=== PATIENT | female | born 1940 | race Caucasian/White ===

== ENCOUNTER → 2017-02-09 | Outpatient (CLI) | payer MEDICARE, OTHER ==
[2017-02-09 09:49] LABS: ABSOLUTE EOSINOPHILS # (AUTO) 0.1 10^3/uL (0.0-0.6); ABSOLUTE LYMPHOCYTES (AUTO) 2.1 10^3/uL (0.5-4.7); ABSOLUTE MONOCYTES (AUTO) 0.5 10^3/uL (0.1-1.4); ABSOLUTE NEUT (AUTO) 4.4 10^3/uL (1.7-8.2); BASOPHILS % (AUTO) 0.5 % (0-2); EOSINOPHILS % (AUTO) 1.2 % (0-6); HEMATOCRIT 33.4 % (36.0-47.0); HEMOGLOBIN 10.8 g/dL (12.0-15.5); LYMPHOCYTES % (AUTO) 29.3 % (13-45); MEAN CORPUSCULAR HEMOGLOBIN 28.4 pg (27.0-33.4); MEAN CORPUSCULAR HGB CONC 32.2 g/dL (32.0-36.0); MEAN CORPUSCULAR VOLUME 88 fl (80-97); MONOCYTES % (AUTO) 6.9 % (3-13); RED BLOOD COUNT 3.79 10^6/uL (3.72-5.28); RED CELL DISTRIBUTION WIDTH 13.5 % (11.5-14.0); SEGMENTED NEUTROPHILS % (AUTO) 62.1 % (42-78)
[2017-02-09 10:27] LABS: ALANINE AMINOTRANSFERASE 26 U/L (9-52); ALBUMIN 4.2 g/dL (3.5-5.0); ALKALINE PHOSPHATASE 62 U/L (38-126); ANION GAP 11 (5-19); ASPARTATE AMINO TRANSFERASE 18 U/L (14-36); BILIRUBIN,DIRECT 0.3 mg/dL (0.0-0.4); BILIRUBIN,TOTAL 0.4 mg/dL (0.2-1.3); BLOOD UREA NITROGEN 26 mg/dL (7-20); CALCIUM 9.8 mg/dL (8.4-10.2); CARBON DIOXIDE 28 mmol/L (22-30); CHLORIDE 102 mmol/L (98-107); CHOLESTEROL 192.07 mg/dL (0-200); CREATININE RESULT 0.82 mg/dL (0.52-1.25); Direct HDL 81 mg/dL (>40); GLUCOSE 122 mg/dL (75-110); POTASSIUM 4.7 mmol/L (3.6-5.0); SODIUM 140.9 mmol/L (137-145); TOTAL PROTEIN 6.7 g/dL (6.3-8.2); TRIGLYCERIDES 159 mg/dL (<150)
[2017-02-09 10:39] LABS: DIRECT LDL 73 mg/dL (<100)
[2017-02-09 10:43] LABS: VLDL CHOLESTEROL 31.8 mg/dL (10-31)
== END ==
LOC: OD 08:52
PROVIDERS: ATTEND Internal Medicine
DX: E11.9 Type 2 diabetes mellitus without complications (principal); I10 Essential (primary) hypertension; E78.5 Hyperlipidemia, unspecified; R53.82 Chronic fatigue, unspecified
CPT/HCPCS: 36415; 80053; 80061; 82043; 83036; 84443; 85025

== ENCOUNTER → 2018-04-17 | Outpatient (CLI) | payer MEDICARE ==
[2018-04-17 11:52] LABS: ABSOLUTE EOSINOPHILS # (AUTO) 0.2 10^3/uL (0.0-0.6); ABSOLUTE MONOCYTES (AUTO) 0.4 10^3/uL (0.1-1.4); ABSOLUTE NEUT (AUTO) 4.6 10^3/uL (1.7-8.2); BASOPHILS % (AUTO) 0.7 % (0-2); EOSINOPHILS % (AUTO) 2.3 % (0-6); HEMATOCRIT 33.9 % (36.0-47.0); HEMOGLOBIN 11.4 g/dL (12.0-15.5); LYMPHOCYTES % (AUTO) 27.9 % (13-45); MEAN CORPUSCULAR HEMOGLOBIN 29.1 pg (27.0-33.4); MEAN CORPUSCULAR HGB CONC 33.6 g/dL (32.0-36.0); MEAN CORPUSCULAR VOLUME 87 fl (80-97); MONOCYTES % (AUTO) 6.1 % (3-13); PLATELET COUNT 283 10^3/uL (150-450); RED BLOOD COUNT 3.92 10^6/uL (3.72-5.28); RED CELL DISTRIBUTION WIDTH 14.1 % (11.5-14.0); TOTAL CELLS COUNTED % (AUTO) 100 %; WHITE BLOOD COUNT 7.3 10^3/uL (4.0-10.5)
[2018-04-17 12:12] LABS: ALANINE AMINOTRANSFERASE 21 U/L (9-52); ALKALINE PHOSPHATASE 75 U/L (38-126); ANION GAP 13 (5-19); ASPARTATE AMINO TRANSFERASE 22 U/L (14-36); BILIRUBIN,DIRECT 0.2 mg/dL (0.0-0.4); BILIRUBIN,TOTAL 0.5 mg/dL (0.2-1.3); BLOOD UREA NITROGEN 21 mg/dL (7-20); CALCIUM 9.7 mg/dL (8.4-10.2); CARBON DIOXIDE 27 mmol/L (22-30); CHLORIDE 101 mmol/L (98-107); GLUCOSE 174 mg/dL (75-110); POTASSIUM 4.5 mmol/L (3.6-5.0); SODIUM 140.5 mmol/L (137-145); TOTAL PROTEIN 6.8 g/dL (6.3-8.2)
[2018-04-18 12:38] LABS: CREATININE URINE 169.9 mg/dL (Not Estab.); MICROALBUMIN URINE 75.2 ug/mL (Not Estab.)
[2018-04-19 11:07] LABS: CHOLESTEROL 188.93 mg/dL (0-200); TRIGLYCERIDES 187 mg/dL (<150)
[2018-04-19 11:17] LABS: DIRECT LDL 114 mg/dL (<100)
[2018-04-19 11:19] LABS: VLDL CHOLESTEROL 37.4 mg/dL (10-31)
== END ==
LOC: OD 10:26
PROVIDERS: ATTEND Internal Medicine
DX: E11.9 Type 2 diabetes mellitus without complications (principal); I10 Essential (primary) hypertension; E78.5 Hyperlipidemia, unspecified; E03.9 Hypothyroidism, unspecified; M06.9 Rheumatoid arthritis, unspecified
CPT/HCPCS: 36415; 80053; 80061; 82043; 82570; 83036; 84443; 85025

== ENCOUNTER 2018-11-02 13:42 | Emergency (ER) | payer MEDICARE ==
[2018-11-02 13:49] VITALS: BP 117/46
[2018-11-02] MEDS ORDERED: KETOROLAC TROMETHAMINE INJ/PF 30 MG/1 ML SDV IV ONE (14:54)
[2018-11-02] MEDS ORDERED: NORMAL SALINE 1000 ML 1,000 ML IV ONE ×2 (14:55→17:42)
--- NOTE | 2018-11-02 14:55 | ER Document Report ---
ED Medical Screen (RME) - General Mode of Arrival: Ambulatory Information source: Patient TRAVEL OUTSIDE OF THE [place] IN LAST 30 DAYS: No <MACARENA JO - Last Filed: 11/02/18 15:19> <MAGGIE COLES - Last Filed: 11/02/18 18:22> - General Chief Complaint: Urinary Problem Stated Complaint: DIZZINESS Time Seen by Provider: 11/02/18 14:18 Primary Care Provider: ALTHEA BRANDON MD [Primary Care Provider] - Follow up as needed Notes: Patient is a 78-year-old female presented to the emergency department chief complaint of bilateral low back pain, urinary frequency, urgency and dysuria. Patient reports she is already had a 7-day course of Cipro for urinary tract infection however her symptoms have worsened. She states she was seen at her physician's office today who directed her to come to the ED for possible pyelonephritis. Patient reports 2 episodes of vomiting in the last 24 hours, reports chills but has not taken her temperature. (MACARENA JO) - Related Data Allergies/Adverse Reactions: adhesive tape [Adhesive Tape] Allergy (Severe, Verified 11/02/18 13:45) Blisters morphine [Morphine] Allergy (Severe, Verified 11/02/18 13:45) "body on fire" Sulfa (Sulfonamide Antibiotics) Allergy (Severe, Verified 11/02/18 13:45) rash aspirin [Aspirin] Adverse Reaction (Severe, Verified 11/02/18 13:45) Vomiting lisinopril [Lisinopril] Adverse Reaction (Intermediate, Verified 11/02/18 13:45) COUGH Past Medical History - Past Medical History Cardiac Medical History: Reports: Hx Hypercholesterolemia, Hx Hypertension - medicated Denies: Hx Coronary Artery Disease, Hx Heart Attack Pulmonary Medical History: Reports: Hx Bronchitis Denies: Hx Asthma, Hx COPD, Hx Pneumonia Neurological Medical History: Denies: Hx Cerebrovascular Accident, Hx Seizures Endocrine Medical History: Reports: Hx Diabetes Mellitus Type 1, Hx Hypothyroidism Renal/ Medical History: Denies: Hx Peritoneal Dialysis GI Medical History: Reports: Hx Gastroesophageal Reflux Disease. Denies: Hx Hepatitis, Hx Hiatal Hernia, Hx Ulcer Musculoskeltal Medical History: Reports Hx Arthritis - shoulders,hands,rt ankle,back Infectious Medical History: Denies: Hx Hepatitis Past Surgical History: Reports: Hx Appendectomy, Hx Breast Surgery - reduction, Hx Cholecystectomy, Hx Hysterectomy, Hx Orthopedic Surgery - right ankle. Denies: Hx Mastectomy, Hx Open Heart Surgery, Hx Pacemaker - Immunizations Hx Diphtheria, Pertussis, Tetanus Vaccination: Yes - 2006 <MACARENA JO - Last Filed: 11/02/18 15:19> - Vital signs Vitals: Temp Pulse Resp BP Pulse Ox 98.4 F 85 16 117/46 L 94 11/02/18 13:47 11/02/18 13:47 11/02/18 13:47 11/02/18 13:47 11/02/18 13:47 Course - Laboratory Result Diagrams: 11/02/18 15:14 11/02/18 15:14 <MAGIGE COLES - Last Filed: 11/02/18 18:22> - Vital Signs Vital signs: Temp Pulse Resp BP Pulse Ox 98.4 F 85 16 117/46 L 94 11/02/18 13:47 11/02/18 13:47 11/02/18 13:47 11/02/18 13:47 11/02/18 13:47 - Laboratory Laboratory results interpreted by me: 11/02/18 11/02/18 11/02/18 15:14 15:14 15:14 WBC 15.1 H RBC 3.23 L Hgb 9.2 L Hct 28.0 L RDW 14.1 H Plt Count 692 H Seg Neutrophils % 82.2 H Lymphocytes % 9.8 L Absolute Neutrophils 12.4 H Sodium 134.5 L Chloride 97 L BUN 24 H Est GFR ( Amer) 54 L Est GFR (Non-Af Amer) 45 L Glucose 254 H Total Protein 6.2 L Urine Protein 30 H Urine Glucose (UA) >=500 H Urine Blood LARGE H Ur Leukocyte Esterase TRACE H Doctor's Discharge <MACARENA JO - Last Filed: 11/02/18 15:19> <MAGGEI COLES - Last Filed: 11/02/18 18:22> - Discharge Clinical Impression: Weakness, Nausea Low back pain Qualifiers: Chronicity: unspecified Back pain laterality: bilateral Sciatica presence: without sciatica Qualified Code(s): M54.5 - Low back pain Condition: Good Disposition: HOME, SELF-CARE Instructions: Weakness ([facility]), Hematuria ([facility]), Nausea or Vomiting, Nonspecific ([facility]) Additional Instructions: Your urinalysis shows blood but no evidence of an acute infection. A urine culture has been sent and this will result in 2 to 3 days. If you require furt her antibiotics she will be contacted. Recent infection can cause weakness, fatigue and nausea. He has been sent home with Zofran that you can use for your nausea. Please return if you experience persistent vomiting, fever greater than 101. Please be sure to drink plenty of fluids. Return to the emergency department with any concerning symptoms. Prescriptions: Ketorolac Tromethamine [Toradol 10 mg Tablet] 10 mg PO Q6HP PRN #10 tablet PRN Reason: Ondansetron [Zofran Odt 4 mg Tablet] 1 - 2 tab PO Q4H PRN #15 tab.rapdis PRN Reason: For Nausea/Vomiting Referrals: ALTHEA BRANDON MD [Primary Care Provider] - Follow up in 3-5 days
[2018-11-02 15:47] LABS: ABSOLUTE BASOPHILS # (AUTO) 0.1 10^3/uL (0.0-0.2); ABSOLUTE EOSINOPHILS # (AUTO) 0.1 10^3/uL (0.0-0.6); ABSOLUTE LYMPHOCYTES (AUTO) 1.5 10^3/uL (0.5-4.7); ABSOLUTE NEUT (AUTO) 12.4 10^3/uL (1.7-8.2); BASOPHILS % (AUTO) 0.4 % (0-2); EOSINOPHILS % (AUTO) 0.6 % (0-6); HEMOGLOBIN 9.2 g/dL (12.0-15.5); LYMPHOCYTES % (AUTO) 9.8 % (13-45); MEAN CORPUSCULAR HEMOGLOBIN 28.6 pg (27.0-33.4); MEAN CORPUSCULAR VOLUME 87 fl (80-97); PLATELET COUNT 692 10^3/uL (150-450); RED BLOOD COUNT 3.23 10^6/uL (3.72-5.28); RED CELL DISTRIBUTION WIDTH 14.1 % (11.5-14.0); SEGMENTED NEUTROPHILS % (AUTO) 82.2 % (42-78); TOTAL CELLS COUNTED % (AUTO) 100 %; WHITE BLOOD COUNT 15.1 10^3/uL (4.0-10.5)
[2018-11-02 16:03] LABS: APPEARANCE,URINE CLOUDY; BILIRUBIN,URINE NEGATIVE (NEGATIVE); COLOR,URINE YELLOW; GLUCOSE, URINE >=500 mg/dL (NEGATIVE); KETONES,URINE NEGATIVE (NEGATIVE); LEUKOCYTE ESTERASE,URINE TRACE (NEGATIVE); NITRITE,URINE NEGATIVE (NEGATIVE); PROTEIN,URINE 30 mg/dL (NEGATIVE); URINE SPECIFIC GRAVITY 1.018; UROBILINOGEN,URINE NEGATIVE mg/dL (<2.0)
[2018-11-02 16:07] LABS: ALANINE AMINOTRANSFERASE 26 U/L (9-52); ALBUMIN 3.5 g/dL (3.5-5.0); ANION GAP 15 (5-19); ASPARTATE AMINO TRANSFERASE 27 U/L (14-36); BILIRUBIN,DIRECT 0.3 mg/dL (0.0-0.4); BILIRUBIN,TOTAL 0.3 mg/dL (0.2-1.3); BLOOD UREA NITROGEN 24 mg/dL (7-20); CALCIUM 9.3 mg/dL (8.4-10.2); CARBON DIOXIDE 23 mmol/L (22-30); CHLORIDE 97 mmol/L (98-107); GLUCOSE 254 mg/dL (75-110); NEONATAL BILIRUBIN RESULT 0.1 mg/dL (0.1-1.1); POTASSIUM 4.4 mmol/L (3.6-5.0); SODIUM 134.5 mmol/L (137-145); TOTAL PROTEIN 6.2 g/dL (6.3-8.2)
[2018-11-02 16:09] LABS: ALKALINE PHOSPHATASE 93 U/L (38-126)
[2018-11-02] MEDS ORDERED: ONDANSETRON HCL INJ/PF 4 MG/2 ML SDV IV ONE (17:42)
[2018-11-02] MEDS ORDERED: FENTANYL CITRATE INJ/PF 100 MCG/2 ML AMPUL IV ONE (17:42)
--- NOTE | 2018-11-02 18:27 | ER Document Report ---
ED General - General Chief Complaint: Urinary Problem Stated Complaint: DIZZINESS Time Seen by Provider: 11/02/18 14:18 Primary Care Provider: ALTHEA BRANDON MD [Primary Care Provider] - Follow up in 3-5 days Mode of Arrival: Ambulatory Information source: Patient, Relative, DrCarlotta Franklin, [facility] Records Notes: 78-year-old female with hypertension, hyperlipidemia, type 1 diabetes, report of recent urinary tract infection treated with 1 week of Cipro Presents with complaint of nausea, low back pain, weakness, abdominal pain that have been present for 1 week. Patient reports that her primary care physician tract infection 1 week ago. She denies any dysuria, hematuria, urinary frequency. Patient states that after her antibiotic course she was evaluated by Dr. Brandon who advised that the patient be seen in the emergency department because of her weakness. Patient has not had any fever, chest pain,, vomiting shortness of breath, diarrhea. Patient's lower abdominal pain is located in the right and left lower quadrant and described as a cramping pain. Patient does report some improvement of her pain after receiving IV Toradol. TRAVEL OUTSIDE OF THE [place] IN LAST 30 DAYS: No - HPI Onset: Last week Onset/Duration: Gradual, Persistent Quality of pain: Achy Severity: Mild Pain Level: 1 Associated symptoms: Body/muscle aches, Nausea, Weakness. denies: Chest pain, Nonproductive cough, Diarrhea, Fever, Leg swelling, Vomiting, Shortness of breath Exacerbated by: Denies Relieved by: Denies Similar symptoms previously: Yes Recently seen / treated by doctor: Yes - Related Data Allergies/Adverse Reactions: adhesive tape [Adhesive Tape] Allergy (Severe, Verified 11/02/18 13:45) Blisters morphine [Morphine] Allergy (Severe, Verified 11/02/18 13:45) "body on fire" Sulfa (Sulfonamide Antibiotics) Allergy (Severe, Verified 11/02/18 13:45) rash aspirin [Aspirin] Adverse Reaction (Severe, Verified 11/02/18 13:45) Vomiting lisinopril [Lisinopril] Adverse Reaction (Intermediate, Verified 11/02/18 13:45) COUGH Past Medical History - General Information source: Patient - Social History Smoking Status: Never Smoker Frequency of alcohol use: None Drug Abuse: None Lives with: Family Family History: Reviewed & Not Pertinent Patient has suicidal ideation: No Patient has homicidal ideation: No - Past Medical History Cardiac Medical History: Reports: Hx Hypercholesterolemia, Hx Hypertension - medicated Denies: Hx Coronary Artery Disease, Hx Heart Attack Pulmonary Medical History: Reports: Hx Bronchitis Denies: Hx Asthma, Hx COPD, Hx Pneumonia Neurological Medical History: Denies: Hx Cerebrovascular Accident, Hx Seizures Endocrine Medical History: Reports: Hx Diabetes Mellitus Type 1, Hx Hypothyroidism Renal/ Medical History: Denies: Hx Peritoneal Dialysis GI Medical History: Reports: Hx Gastroesophageal Reflux Disease. Denies: Hx Hepatitis, Hx Hiatal Hernia, Hx Ulcer Musculoskeletal Medical History: Reports Hx Arthritis - shoulders,hands,rt ankle,back Infectious Medical History: Denies: Hx Hepatitis Past Surgical History: Reports: Hx Appendectomy, Hx Breast Surgery - reduction, Hx Cholecystectomy, Hx Hysterectomy, Hx Orthopedic Surgery - right ankle. Denies: Hx Mastectomy, Hx Open Heart Surgery, Hx Pacemaker - Immunizations Hx Diphtheria, Pertussis, Tetanus Vaccination: Yes - 2006 Hx Pneumococcal Vaccination: 02/27/10 Review of Systems - Review of Systems Notes: REVIEW OF SYSTEMS: CONSTITUTIONAL : Denies fever, chills, or sweats. Denies recent illness. Alejo es weight loss, recent hospitalizations. EENT: Denies visual changes, eye pain. Denies sore throat, oral lesions, difficulty swallowing. CARDIOVASCULAR: Denies chest pain. Denies palpitations. Denies lower extremity edema. RESPIRATORY: Denies cough. Denies shortness of breath, wheezing. GASTROINTESTINAL: Denies abdominal distention. Denies vomiting, or diarrhea. Denies blood in vomitus, stools, or per rectum. Denies black, tarry stools. Denies constipation. GENITOURINARY: Denies difficulty urinating, painful urination, frequency, blood in urine, or vaginal discharge. MUSCULOSKELETAL: Denies back or neck pain or stiffness. Denies joint pain or swelling. SKIN: Denies rash, lesions or sores. HEMATOLOGIC : Denies easy bruising or bleeding. LYMPHATIC: Denies swollen glands. NEUROLOGICAL: Denies confusion or altered mental status. Denies loss of consciousness. Denies dizziness or lightheadedness. Denies headache. Denies weakness or paralysis. Denies problems difficulty with ambulation, slurred speech. Denies sensory loss, numbness, or tingling. Denies seizures. PSYCHIATRIC: Denies anxiety or stress. Denies depression, suicidal ideation, or homicidal ideation. Denies visual or auditory hallucinations. Physical Exam - Vital signs Vitals: Temp Pulse Resp BP Pulse Ox 98.4 F 85 16 117/46 L 94 11/02/18 13:47 11/02/18 13:47 11/02/18 13:47 11/02/18 13:47 11/02/18 13:47 - Notes Notes: GENERAL: Well-appearing, well-nourished and in no acute distress. HEAD: Atraumatic, normocephalic. EYES: Pupils equal round and reactive to light, extraocular movements intact, conjunctiva are normal. ENT: Nares patent, oropharynx clear without exudates. Moist mucous membranes. NECK: Normal range of motion, supple without lymphadenopathy LUNGS: Breath sounds clear to auscultation bilaterally and equal. No wheezes rales or rhonchi. HEART: Regular rate and rhythm without murmurs ABDOMEN: Soft, tenderness with palpation to the lower abdomen, no guarding, no rebound. No masses appreciated. Female : deferred Musculoskeletal: Normal range of motion, no pitting or edema. No cyanosis. Tenderness with palpation bilaterally and the paraspinal musculature of the lumbar spine. NEUROLOGICAL: Cranial nerves grossly intact. Normal speech, normal gait. Normal sensory, motor exams PSYCH: Normal mood, normal affect. SKIN: Warm, Dry, normal turgor, no rashes or lesions noted. Course - Re-evaluation Re-evalutation: Laboratory 11/02/18 11/02/18 11/02/18 15:14 15:14 15:14 WBC 15.1 H RBC 3.23 L Hgb 9.2 L Hct 28.0 L MCV 87 MCH 28.6 MCHC 33.0 RDW 14.1 H Plt Count 692 H Seg Neutrophils % 82.2 H Lymphocytes % 9.8 L Monocytes % 7.0 Eosinophils % 0.6 Basophils % 0.4 Absolute Neutrophils 12.4 H Absolute Lymphocytes 1.5 Absolute Monocytes 1.0 Absolute Eosinophils 0.1 Absolute Basophils 0.1 Sodium 134.5 L Potassium 4.4 Chloride 97 L Carbon Dioxide 23 Anion Gap 15 BUN 24 H Creatinine 1.17 Est GFR ( Amer) 54 L Est GFR (Non-Af Amer) 45 L Glucose 254 H Calcium 9.3 Total Bilirubin 0.3 Direct Bilirubin 0.3 Neonat Total Bilirubin 0.1 Neonat Direct Bilirubin 0.0 Neonat Indirect Bili 0.1 AST 27 ALT 26 Alkaline Phosphatase 93 Total Protein 6.2 L Albumin 3.5 Urine Color YELLOW Urine Appearance CLOUDY Urine pH 5.0 Ur Specific Mangum 1.018 Urine Protein 30 H Urine Glucose (UA) >=500 H Urine Ketones NEGATIVE Urine Blood LARGE H Urine Nitrite NEGATIVE Urine Bilirubin NEGATIVE Urine Urobilinogen NEGATIVE Ur Leukocyte Esterase TRACE H Urine WBC (Auto) 37 Urine RBC (Auto) 80 Squamous Epi Cells Auto 6 Urine Mucus (Auto) RARE Urine Ascorbic Acid NEGATIVE Temp Pulse Resp BP Pulse Ox 98.4 F 85 16 117/46 L 94 11/02/18 13:47 11/02/18 13:47 11/02/18 13:47 11/02/18 13:47 11/02/18 13:47 11/02/18 18:25 78-year-old female presents with complaint of nausea, low back pain, lower abdominal pain that has been ongoing for 2 weeks. States that she was diagnosed with a urinary tract infection 1 week ago and completed a course of Cipro. She states that Dr. Brandon center to the emergency room for further evaluation of infection since the patient is still feeling weak and nauseous. She denies any vomiting, fever, dysuria, hematuria. Vital signs reviewed and within normal limits. Patient is afebrile, normotensive and not hypoxic. She does not appear toxic or dehydrated. Exam is significant for bilateral low back pain and bilateral lower abdominal pain. Patient did receive Toradol and IV fluids nadja or to my exam and does report improvement of her low back pain. I did review that her urinalysis did not show any evidence of significant infection. urine culture is pending. Because of the patient's lower abdominal pain a CT of the abdomen pelvis was ordered but patient is requesting discharge prior to completion. Patient is also declining Zofran for her nausea. Patient was discharged her home per her request prior to completion of evaluation. 11/03/18 01:25 11/03/18 01:26 - Vital Signs Vital signs: Temp Pulse Resp BP Pulse Ox 98.4 F 85 16 117/46 L 94 11/02/18 13:47 11/02/18 13:47 11/02/18 13:47 11/02/18 13:47 11/02/18 13:47 - Laboratory Result Diagrams: 11/02/18 15:14 11/02/18 15:14 Laboratory results interpreted by me: 11/02/18 11/02/18 11/02/18 15:14 15:14 15:14 WBC 15.1 H RBC 3.23 L Hgb 9.2 L Hct 28.0 L RDW 14.1 H Plt Count 692 H Seg Neutrophils % 82.2 H Lymphocytes % 9.8 L Absolute Neutrophils 12.4 H Sodium 134.5 L Chloride 97 L BUN 24 H Est GFR ( Amer) 54 L Est GFR (Non-Af Amer) 45 L Glucose 254 H Total Protein 6.2 L Urine Protein 30 H Urine Glucose (UA) >=500 H Urine Blood LARGE H Ur Leukocyte Esterase TRACE H Discharge - Discharge Clinical Impression: Weakness, Nausea Low back pain Qualifiers: Chronicity: unspecified Back pain laterality: bilateral Sciatica presence: without sciatica Qualified Code(s): M54.5 - Low back pain Condition: Good Disposition: HOME, SELF-CARE Instructions: Hematuria ([facility]), Nausea or Vomiting, Nonspecific ([facility]), Weakness ([facility]) Additional Instructions: Your urinalysis shows blood but no evidence of an acute infection. A urine culture has been sent and this will result in 2 to 3 days. If you require further antibiotics she will be contacted. Recent infection can cause weakness, fatigue and nausea. He has been sent home with Zofran that you can use for your nausea. Please return if you experience persistent vomiting, fever greater than 101. Please be sure to drink plenty of fluids. Return to the emergency department with any concerning symptoms. Prescriptions: Ketorolac Tromethamine [Toradol 10 mg Tablet] 10 mg PO Q6HP PRN #10 tablet PRN Reason: Ondansetron [Zofran Odt 4 mg Tablet] 1 - 2 tab PO Q4H PRN #15 tab.rapdis PRN Reason: For Nausea/Vomiting Referrals: ALTHEA BRANDON MD [Primary Care Provider] - Follow up in 3-5 days
== END 2018-11-02 18:38 | disposition home or self-care (01) ==
LOC: ER 13:42
DX: R53.1 Weakness (principal); R11.0 Nausea; M54.5 Low back pain; R10.30 Lower abdominal pain, unspecified; R42 Dizziness and giddiness; I10 Essential (primary) hypertension; E78.5 Hyperlipidemia, unspecified; E78.00 Pure hypercholesterolemia, unspecified; E10.9 Type 1 diabetes mellitus without complications; Z88.6 Allergy status to analgesic agent; Z88.2 Allergy status to sulfonamides
CPT/HCPCS: 99283; 96361; 96374; 36415; 87086; 85025; 80053; 81001; J1885; J7030

== ENCOUNTER → 2018-11-06 | Outpatient (CLI) | payer MEDICARE ==
--- NOTE | 2018-11-06 17:49 | RADIOLOGY REPORT (SQ) ---
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 No oral contrast. Images reviewed with lung, soft tissue, and bone w indows. Reconstructed coronal and sagittal MPR images reviewed. Delayed images for evaluation of the urinary system also acquired. All images stored on PACS. All CT scanners at this facility use dose modulation, iterative reconstruction, and/or weight based d osing when appropriate to reduce radiation dose to as low as reasonably achievable (ALARA). [facility]: Dose Right [facility]: CareDose [facility]: Dose Right [facility]: Teradose 4D [facility]: Xockets CONTRAST TYPE AND DOSE: contrast/concentration: Isovue 350.00 mg/ml; Total Contrast Delivered: 82.0 ml; Total Saline Delivered: 68.0 ml RENAL FUNCTION: GFR > 60. RADIATION DOSE: CT Rad equipment meets quality standard of care and radiation dose reduction techniq ues were employed. CTDIvol: 8.5 - 9.9 mGy. DLP: 953 mGy-cm.. LIMITATIONS: None. FINDINGS: LOWER CHEST: No significant findings. LIVER: Normal size. No enhancing masses. No dilated ducts. SPLEEN: Normal size. No focal lesions. PANCREAS: No masses identified. No significant calcifications. No adjacent inflammation or peripancre atic fluid collections. Pancreatic duct not dilated. GALLBLADDER: Surgically absent. ADRENAL GLANDS: No significant masses. RIGHT KIDNEY AND URETER: Small cysts identified. No solid masses identified. No calcified stones. No hydronephrosis or hydroureter. LEFT KIDNEY AND URETER: There is a left renal lateral subcapsular heterogeneously dense fluid collect ion measuring 9.5 cm in craniocaudad dimension by 7.5 cm AP x 4.5 cm transverse, the mixed density todd ggests hematoma but infection should be excluded on clinical grounds. The adjacent cortex appears to enhance normally. There is a delayed nephrogram. Renal vascular pedicle is intact without thrombus . There is some irregularity at the inferior margin with extension beyond the capsule into the infer ior left pararenal space. . No calcified stones. No hydronephrosis or hydroureter. AORTA AND VESSELS: No aneurysm. No dissection. Renal arteries, SMA, celiac without significant stenos is. RETROPERITONEUM: No bulky retroperitoneal adenopathy. BOWEL AND PERITONEAL CAVITY: Diverticulosis. No obstruction or inflammatory changes. No free fluid. APPENDIX: Normal. PELVIS: Prior hysterectomy. No free fluid. Unremarkable bladder. ABDOMINAL WALL: No masses. No hernias. BONES: No acute findings. OTHER: No other significant finding. IMPRESSION: There is a left renal lateral subcapsular heterogeneously dense fluid collection measuri ng 9.5 cm in craniocaudad dimension by 7.5 cm AP x 4.5 cm transverse, the mixed density suggests sanam anahi but infection should be excluded on clinical grounds. The adjacent cortex appears to enhance no rmally. There is a delayed nephrogram. Renal vascular pedicle is intact without thrombus. There is some irregularity at the inferior margin with extension beyond the capsule into the inferior left par arenal space. Urology consultation is recommended. TECHNICAL DOCUMENTATION: JOB ID: [id number] [place]-[id number] Quality ID # [id number]: Final reports with documentation of one or more dose reduction techniques (e.g., Au tomated exposure control, adjustment of the mA and/or kV according to patient size, use of iterative reconstruction technique) 2010 [employer]- All Rights Reserved Reading location - IP/workstation name: [email or web address]
== END ==
LOC: RAD 14:15
PROVIDERS: ATTEND Internal Medicine
DX: N12 Tubulo-interstitial nephritis, not specified as acute or chronic (principal); R10.9 Unspecified abdominal pain
CPT/HCPCS: 74177

== ENCOUNTER → 2019-06-21 | Outpatient (CLI) | payer MEDICARE ==
[2019-06-21 09:07] LABS: ABSOLUTE EOSINOPHILS # (AUTO) 0.1 10^3/uL (0.0-0.6); ABSOLUTE LYMPHOCYTES (AUTO) 1.3 10^3/uL (0.5-4.7); ABSOLUTE MONOCYTES (AUTO) 0.5 10^3/uL (0.1-1.4); ABSOLUTE NEUT (AUTO) 6.1 10^3/uL (1.7-8.2); BASOPHILS % (AUTO) 0.5 % (0-2); EOSINOPHILS % (AUTO) 1.7 % (0-6); HEMATOCRIT 31.5 % (36.0-47.0); HEMOGLOBIN 10.5 g/dL (12.0-15.5); LYMPHOCYTES % (AUTO) 16.1 % (13-45); MEAN CORPUSCULAR HEMOGLOBIN 29.5 pg (27.0-33.4); MEAN CORPUSCULAR HGB CONC 33.5 g/dL (32.0-36.0); MEAN CORPUSCULAR VOLUME 88 fl (80-97); MONOCYTES % (AUTO) 6.5 % (3-13); PLATELET COUNT 275 10^3/uL (150-450); RED BLOOD COUNT 3.57 10^6/uL (3.72-5.28); SEGMENTED NEUTROPHILS % (AUTO) 75.2 % (42-78); TOTAL CELLS COUNTED % (AUTO) 100 %; WHITE BLOOD COUNT 8.1 10^3/uL (4.0-10.5)
[2019-06-21 09:22] LABS: ALBUMIN 4.1 g/dL (3.5-5.0); ALKALINE PHOSPHATASE 70 U/L (38-126); ANION GAP 10 (5-19); ASPARTATE AMINO TRANSFERASE 22 U/L (14-36); BILIRUBIN,DIRECT 0.3 mg/dL (0.0-0.4); BILIRUBIN,TOTAL 0.3 mg/dL (0.2-1.3); BLOOD UREA NITROGEN 48 mg/dL (7-20); CALCIUM 9.9 mg/dL (8.4-10.2); CARBON DIOXIDE 27 mmol/L (22-30); CHLORIDE 103 mmol/L (98-107); CHOLESTEROL 180.53 mg/dL (0-200); GLUCOSE 89 mg/dL (75-110); POTASSIUM 4.3 mmol/L (3.6-5.0); TRIGLYCERIDES 82 mg/dL (<150)
[2019-06-21 09:33] LABS: DIRECT LDL 81 mg/dL (<100)
== END ==
LOC: OD 08:15
PROVIDERS: ATTEND Internal Medicine
DX: R53.83 Other fatigue (principal); E11.9 Type 2 diabetes mellitus without complications; I10 Essential (primary) hypertension; E78.5 Hyperlipidemia, unspecified
CPT/HCPCS: 36415; 80053; 80061; 83036; 84443; 85025

== ENCOUNTER 2019-06-26 15:11 | Emergency (ER) | payer MEDICARE ==
--- NOTE | 2019-06-26 15:46 | ER Document Report ---
ED General - General Chief Complaint: General Weakness Stated Complaint: GENERAL WEAKNESS Primary Care Provider: ALTHEA BRANDON MD [Primary Care Provider] - Follow up as needed Notes: 71-year-old female presents with generalized weakness on exertion for several weeks. She also short of breath with exertion. She is not short of breath at baseline. She was seen in Dr. Brandon's office.she called me to tell me that she was having hypoxia on exertion down to the 70s and is not sure why. She has rheumatoid arthritis no history of blood clots. She denies cough chest pain shortness of breath or any other symptoms other than positional and exertional dizziness today. TRAVEL OUTSIDE OF THE [place] IN LAST 30 DAYS: No - Related Data Allergies/Adverse Reactions: adhesive tape [Adhesive Tape] Allergy (Severe, Verified 06/26/19 15:53) Blisters morphine [Morphine] Allergy (Severe, Verified 06/26/19 15:53) "body on fire" Sulfa (Sulfonamide Antibiotics) Allergy (Severe, Verified 06/26/19 15:53) rash aspirin [Aspirin] Adverse Reaction (Severe, Verified 06/26/19 15:53) Vomiting lisinopril [Lisinopril] Adverse Reaction (Intermediate, Verified 06/26/19 15:53) COUGH Past Medical History - Social History Smoking Status: Former Smoker Family History: Reviewed & Not Pertinent - Past Medical History Cardiac Medical History: Reports: Hx Hypercholesterolemia, Hx Hypertension - medicated Denies: Hx Coronary Artery Disease, Hx Heart Attack Pulmonary Medical History: Reports: Hx Bronchitis Denies: Hx Asthma, Hx COPD, Hx Pneumonia Neurological Medical History: Denies: Hx Cerebrovascular Accident, Hx Seizures Endocrine Medical History: Reports: Hx Diabetes Mellitus Type 1, Hx Hypothyroidism Renal/ Medical History: Denies: Hx Peritoneal Dialysis GI Medical History: Reports: Hx Gastroesophageal Reflux Disease. Denies: Hx Hepatitis, Hx Hiatal Hernia, Hx Ulcer Musculoskeletal Medical History: Reports Hx Arthritis - shoulders,hands,rt ankle,back Infectious Medical History: Denies: Hx Hepatitis Past Surgical History: Reports: Hx Appendectomy, Hx Breast Surgery - reduction, Hx Cholecystectomy, Hx Hysterectomy, Hx Orthopedic Surgery - right ankle. Denies: Hx Mastectomy, Hx Open Heart Surgery, Hx Pacemaker - Immunizations Hx Diphtheria, Pertussis, Tetanus Vaccination: Yes - 2006 Hx Pneumococcal Vaccination: 02/27/10 Review of Systems - Review of Systems Notes: REVIEW OF SYSTEMS GEN: Denies fever, chills, weight loss ENT: Denies sore throat, nasal discharge, ear pain EYES: Denies blurry vision, eye pain, discharge CV: Denies chest pain, palpitations, edema RESP: Exertional dyspnea g GI: Denies abdominal pain, nausea, vomiting, diarrhea MSK: Denies joint pain/swelling, edema, SKIN: Denies rash, skin lesions LYMPH: Denies swollen glands/lymph nodes NEURO: Denies headache, focal weakness or numbness, dizziness PSYCH: Denies depression, suicidal or homicidal ideation PHYSICAL EXAMINATION General: No acute distress, well-nourished Head: Atraumatic, normocephalic ENT: Mouth normal, oropharynx moist, no exudates or tonsillar enlargement Eyes: Conjunctiva normal, pupils equal, lids normal Neck: No JVD, supple, no guarding CVS: Normal rate, regular rhythm, no murmurs Resp: No resp distress, equal and normal breath sounds bilaterally GI: Nondistended, soft, no tenderness to palpation, no rebound or guarding Ext: No deformities, no edema, normal range of motion in upper and lower ext Back: No CVA or midline TTP Skin: No rash, warm Lymphatic: No lymphadeopathy noted Neuro: Awake, alert. Face symmetric. GCS 15. Physical Exam - Vital signs Vitals: Resp 18 06/26/19 15:27 Course - Re-evaluation Re-evalutation: 06/26/19 15:46 Very well-appearing lady with chronic autoimmune disease presenting with exertional dyspnea Will rule out PE interstitial lung disease and pneumonia We will rule out anemia and other metabolic issues Looks good 06/26/19 21:23 Patient presents with chronic dyspnea, negative ED work-up for any emergent cause No evidence of severe anemia PE study negative with no lung findings. Saturation 96 at rest on repeat exam discussed at length with patient and she is comfortably discharged to continue her work-up as an outpatient such as PFTs and pulmonary referral. I have discussed with the patient there likely diagnosis, aftercare plan, follow-up plans and my usual and customary return precautions. They verbalized understanding of this. - Vital Signs Vital signs: Temp Pulse Resp BP Pulse Ox 97.5 F 56 L 10 L 125/48 L 100 06/26/19 18:24 06/26/19 18:24 06/26/19 18:24 06/26/19 18:24 06/26/19 18:24 - Laboratory Result Diagrams: 06/26/19 15:40 06/26/19 15:40 Laboratory results interpreted by me: 06/26/19 06/26/19 06/26/19 15:40 15:40 15:40 RBC 3.56 L Hgb 10.5 L Hct 31.5 L BUN 42 H Est GFR ( Amer) 56 L Est GFR (MDRD) Non-Af 47 L Glucose 43 L NT-Pro-B Natriuret Pep 652 H - Diagnostic Test Radiology reviewed: Image reviewed, Reports reviewed Discharge - Discharge Clinical Impression: Exertional dyspnea Condition: Good Disposition: HOME, SELF-CARE Instructions: Dyspnea, Nonspecific ([facility]) Additional Instructions: Per your primary care doctor you were evaluated in the emergency room for di zziness and low oxygen on exertion. Your oxygen level was normal at rest. Extensive testing did not reveal a cause of your shortness of breath, and you may continue your outpatient work-up with Dr. Brandon. Referrals: ALTHEA BRANDON MD [Primary Care Provider] - Follow up as needed
[2019-06-26 15:50] LABS: ABSOLUTE BASOPHILS # (AUTO) 0.1 10^3/uL (0.0-0.2); ABSOLUTE EOSINOPHILS # (AUTO) 0.1 10^3/uL (0.0-0.6); ABSOLUTE LYMPHOCYTES (AUTO) 2.5 10^3/uL (0.5-4.7); ABSOLUTE MONOCYTES (AUTO) 0.7 10^3/uL (0.1-1.4); ABSOLUTE NEUT (AUTO) 4.5 10^3/uL (1.7-8.2); BASOPHILS % (AUTO) 0.8 % (0-2); EOSINOPHILS % (AUTO) 1.8 % (0-6); HEMATOCRIT 31.5 % (36.0-47.0); HEMOGLOBIN 10.5 g/dL (12.0-15.5); LYMPHOCYTES % (AUTO) 31.6 % (13-45); MEAN CORPUSCULAR HEMOGLOBIN 29.5 pg (27.0-33.4); MEAN CORPUSCULAR HGB CONC 33.4 g/dL (32.0-36.0); MEAN CORPUSCULAR VOLUME 88 fl (80-97); MONOCYTES % (AUTO) 8.7 % (3-13); PLATELET COUNT 287 10^3/uL (150-450); RED BLOOD COUNT 3.56 10^6/uL (3.72-5.28); RED CELL DISTRIBUTION WIDTH 13.9 % (11.5-14.0); SEGMENTED NEUTROPHILS % (AUTO) 57.1 % (42-78); TOTAL CELLS COUNTED % (AUTO) 100 %; WHITE BLOOD COUNT 7.8 10^3/uL (4.0-10.5)
[2019-06-26 16:09] LABS: ANION GAP 7 (5-19); BLOOD UREA NITROGEN 42 mg/dL (7-20); CALCIUM 9.6 mg/dL (8.4-10.2); CARBON DIOXIDE 28 mmol/L (22-30); CHLORIDE 102 mmol/L (98-107); POTASSIUM 4.2 mmol/L (3.6-5.0)
[2019-06-26 16:17] LABS: GLUCOSE 43 mg/dL (75-110)
[2019-06-26 16:21] LABS: NT PRO BNP 652 pg/mL (<450)
[2019-06-26 16:23] LABS: TROPONIN I < 0.012 ng/mL
--- NOTE | 2019-06-26 17:56 | RADIOLOGY REPORT (SQ) ---
EXAM DESCRIPTION: CTA CHEST COMPLETED DATE/TIME: 06/26/2019 5:32 pm REASON FOR STUDY: unexplained hypoxia- PE? COMPARISON: CT chest 10/29/2013 TECHNIQUE: CT scan of the chest performed using helical scanning technique with dynamic intravenous contrast injection. Images reviewed with lung, soft tissue and bone windows. Reconstructed coronal and sagittal MPR images reviewed. Additional 3 dimensional post-processing performed to develop Maximal Intensity Projection images (LA P). All images stored on PACS. All CT scanners at this facility use dose modulation, iterative reconstruction, and/or weight based d osing when appropriate to reduce radiation dose to as low as reasonably achievable (ALARA). [facility]: Dose Right [facility]: CareDose [facility]: Dose Right [facility]: Teradose 4D [facility]: Velomedix CONTRAST TYPE AND DOSE: contrast/concentration: Isovue 350.00 mg/ml; Total Contrast Delivered: 59.0 ml; Total Saline Delivered: 45.0 ml Contrast bolus adequate for pulmonary arteries and aorta. RENAL FUNCTION: Creatinine 1.2 RADIATION DOSE: CT Rad equipment meets quality standard of care and radiation dose reduction techniq ues were employed. CTDIvol: 15.6 - 26.4 mGy. DLP: 547 mGy-cm. . LIMITATIONS: None. FINDINGS: LUNGS AND PLEURA: No masses, infiltrates, or pneumothorax. No pleural effusions or pleura l calcifications. AORTA AND GREAT VESSELS: No aneurysm. No dissection. HEART: Mild cardiomegaly No pericardial effusion. Very heavy calcification LAD axial image 53 PULMONARY ARTERIES: No emboli visualized in the main pulmonary arteries or the segmental branches. HILAR AND MEDIASTINAL STRUCTURES: No identified masses or abnormal nodes. HARDWARE: None in the chest. UPPER ABDOMEN: Greater than 50% narrowing celiac artery on sagittal image 45/86. Post cholecystectom y. Hiatal hernia. THYROID AND OTHER SOFT TISSUES: No masses. No adenopathy. BONES: No acute or significant finding. 3D MIPS: Confirm above findings. OTHER: No other significant finding. IMPRESSION: No CT angio evidence of acute pulmonary emboli or thoracic aortic dissection. No acute infiltrates. Cardiomegaly, coronary artery calcifications, hiatal hernia. COMMENT: Quality ID # [id number]: Final reports with documentation of one or more dose reduction techniques (e.g., Automated exposure control, adjustment of the mA and/or kV according to patient size, use of iterative reconstruction technique) TECHNICAL DOCUMENTATION: JOB ID: [id number] [employer]- All Rights Reserved Reading location - IP/workstation name: [email or web address]
[2019-06-26 18:25] VITALS: BP 125/48
== END 2019-06-26 18:25 | disposition home or self-care (01) ==
LOC: ER 15:11
DX: R06.09 Other forms of dyspnea (principal); R53.1 Weakness; R06.02 Shortness of breath; R09.02 Hypoxemia; Z87.891 Personal history of nicotine dependence; I10 Essential (primary) hypertension; E10.9 Type 1 diabetes mellitus without complications
CPT/HCPCS: 36415; 71275; 80048; 83880; 84484; 85025; 99285

== ENCOUNTER 2019-10-01 11:55 | Emergency (ER) | payer MEDICARE ==
--- NOTE | 2019-10-01 12:10 | ER Document Report ---
ED Neck/Back Problem - General Chief Complaint: Back Pain Stated Complaint: LOWER BACK PAIN Time Seen by Provider: 10/01/19 11:56 Primary Care Provider: EMILY BOX MD [ASSOCIATE] - Follow up as needed ALTHEA BRANDON MD [Primary Care Provider] - Follow up in 3-5 days Mode of Arrival: Ambulatory Information source: Patient Notes: 79-year-old female presented to ED for complaint of low back pain times a week. She states she takes naproxen 750 mg twice daily for the pain. She states she has not had any falls injuries or anything else to cause this pain. She states she cannot walk and stretch because the pain is so bad. She does have a history of diabetes hypothyroid high blood pressure cholesterol and heart problems. She is on metformin Synthroid potassium amlodipine Lasix and she states there is other medicines but she is not sure what they are she did not bring her list. States her doctor is Dr. Brandon. TRAVEL OUTSIDE OF THE [place] IN LAST 30 DAYS: No - HPI Onset: Last week Onset: Chronic Timing: Worse Severity: Moderate Pain Level: 4 Recent injury: No Associated symptoms: Like prior neck/back pain, Radiation to leg, Lower back pain. denies: Constipation, Fever, Incontinence, Motor loss, Numbness/tingling, Sensory loss, Sweaty, Unable to urinate Exacerbated by: Movement of trunk, Sitting position Relieved by: Nothing Similar symptoms previously: Yes Recently seen / treated by doctor: No - Related Data Allergies/Adverse Reactions: adhesive tape [Adhesive Tape] Allergy (Severe, Verified 10/01/19 11:57) Blisters morphine [Morphine] Allergy (Severe, Verified 10/01/19 11:57) "body on fire" Sulfa (Sulfonamide Antibiotics) Allergy (Severe, Verified 10/01/19 11:57) rash aspirin [Aspirin] Adverse Reaction (Severe, Verified 10/01/19 11:57) Vomiting lisinopril [Lisinopril] Adverse Reaction (Intermediate, Verified 10/01/19 11:57) COUGH Home Medications: Metformin. Naproxen. Levothroxine. Potassium. Amlodipine. Furosemide. metoprolol. ASA Past Medical History - General Information source: Patient - Social History Smoking Status: Never Smoker Chew tobacco use (# tins/day): No Frequency of alcohol use: None Drug Abuse: None Lives with: Family Family History: Reviewed & Not Pertinent Patient has homicidal ideation: No - Past Medical History Cardiac Medical History: Reports: Hx Hypercholesterolemia, Hx Hypertension - medicated Pulmonary Medical History: Reports: Hx Bronchitis EENT Medical History: Reports: None Neurological Medical History: Reports: None Endocrine Medical History: Reports: Hx Diabetes Mellitus Type 2, Hx Hypothyroi dism Renal/ Medical History: Reports: None Malignancy Medical History: Reports: None GI Medical History: Reports: Hx Gastroesophageal Reflux Disease Musculoskeletal Medical History: Reports Hx Arthritis - shoulders,hands,rt ankle,back Skin Medical History: Reports None Psychiatric Medical History: Reports: None Traumatic Medical History: Reports: None Infectious Medical History: Reports: None Past Surgical History: Reports: Hx Appendectomy, Hx Breast Surgery - reduction, Hx Cardiac Catheterization, Hx Cholecystectomy, Hx Hysterectomy, Hx Orthopedic Surgery - right ankle - Immunizations Hx Diphtheria, Pertussis, Tetanus Vaccination: No - 2006 Hx Pneumococcal Vaccination: 02/27/10 Review of Systems - Review of Systems Constitutional: No symptoms reported EENT: No symptoms reported Cardiovascular: No symptoms reported Respiratory: No symptoms reported Gastrointestinal: No symptoms reported Genitourinary: No symptoms reported Female Genitourinary: No symptoms reported Musculoskeletal: Back pain, Muscle pain, Muscle stiffness Skin: No symptoms reported Hematologic/Lymphatic: No symptoms reported Neurological/Psychological: No symptoms reported -: Yes All other systems reviewed and negative Physical Exam - Vital signs Vitals: Temp 97.9 F 10/01/19 11:57 Interpretation: Normal - General General appearance: Appears well, Alert - HEENT Head: Normocephalic, Atraumatic Eyes: Normal Pupils: PERRL - Respiratory Respiratory status: No respiratory distress Chest status: Nontender Breath sounds: Normal Chest palpation: Normal - Cardiovascular Rhythm: Regular Heart sounds: Normal auscultation Murmur: No - Abdominal Inspection: Normal Distension: No distension Bowel sounds: Normal Tenderness: Nontender Organomegaly: No organomegaly - Back Back: Normal, Tender, Vertebra tenderness. No: Nontender, Deformity/step-off, CVA tenderness, Scars, Scoliosis, Wounds Notes: No signs or symptoms of cauda equina, no loss control of bowel bladder, no saddle anesthesia, no loss of control or sensation to the lower extremities. She does have pain to the center of her back as well as to both SI joints. - Extremities General upper extremity: Normal inspection, Nontender, Normal color, Normal ROM, Normal temperature General lower extremity: Normal inspection, Nontender, Normal color, Normal ROM, Normal temperature, Normal weight bearing. No: Rea's sign - Neurological Neuro grossly intact: Yes Cognition: Normal Orientation: AAOx4 [place] Coma Scale Eye Opening: Spontaneous [place] Coma Scale Verbal: Oriented [place] Coma Scale Motor: Obeys Commands [place] Coma Scale Total: 15 Speech: Normal Motor strength normal: LUE, RUE, LLE, RLE Sensory: Normal - Psychological Associated symptoms: Normal affect, Normal mood - Skin Skin Temperature: Warm Skin Moisture: Dry Skin Color: Normal Course - Re-evaluation Re-evalutation: 10/01/19 12:56 Discussed x-ray reports with patient and written report of x-ray given the patient patient will need to follow-up with primary care and back specialist. Does have degenerative disc disease. - Vital Signs Vital signs: Temp Pulse Resp BP Pulse Ox 97.9 F 76 124/49 L 98 10/01/19 11:58 10/01/19 11:58 10/01/19 11:58 10/01/19 11:58 - Diagnostic Test Radiology reviewed: Image reviewed, Reports reviewed Discharge - Discharge Clinical Impression: Degenerative disc disease, lumbar Chronic low back pain with bilateral sciatica Qualifiers: Back pain laterality: bilateral Qualified Code(s): M54.42 - Lumbago with sciatica, left side Condition: Stable Disposition: HOME, SELF-CARE Additional Instructions: LOW BACK PAIN: Three out of every four people will have an episode of disabling back pain during their lifetime. Most commonly the pain is due to straining of the muscles and ligaments in the low back. Usual treatment includes: (1) Rest on a firm surface. Avoid lying on your stomach. (2) Ice pack the painful area. After a few days, gentle heat may be used intermittently to relax the area, or ice packs can be continued. (3) Medication may be needed -- muscle relaxers and antiinflammatory medicines are commonly used. (4) As the back improves, exercises are prescribed to strengthen the back and abdominal muscles. Your doctor will advise you on the proper care for your back at each stage in your recovery. You may be better in a few days -- or healing may take several weeks. If new symptoms of a "herniated disc" (radiation of pain, numbness, or tingling down the back of the leg or weakness in the leg) occur, you should be re-examined. Further testing may be necessary. ICE PACKS: Apply ice packs frequently against the painful area. Many different schedules are recommended, such as "20 minutes on, 20 minutes off" or "one hour ice, two hours rest." If you need to work, you may need to go longer between ice treatments. You should plan to have the area ice packed AT LEAST one fourth of the time. The ice should be applied over the wrap, tape, or splint, or over a layer of cloth -- not directly against the skin. Some ice bags have a built-in cloth and can be put directly on the skin. WARM PACKS: After approximately two days, apply gentle heat (such as a heating pad or hot water bottle) for about 20 to 30 minutes about every two hours -- at least four times daily. Warmth and elevation will help you make a more rapid recovery, and will ease the pain considerably. Do not use HOT heat, and never apply heat for longer than 30 minutes. The continuous heat can invisibly damage skin and muscles -- even when no burn is seen on the surface. Damaged muscles can make you MORE sore. Anti-Inflammatory Medication You have received a prescription for an antiinflammatory agent. This is an excellent, safe drug for pain control. In addition, it has potent antiinflammatory effects which are beneficial, especially in the treatment of injuries, arthritis, or tendonitis. It's best to take this medicine with food. Persons with ulcer disease or allergy to aspirin should notify their physician of this before taking this drug. Take the medication exactly as prescribed. Don't take additional doses unless instructed to do so by your doctor. If you develop wheezing, shortness of breath, hives, faintness, stomach pain, vomiting, or dark black stools, return for re-evaluation at once. Stretching Exercises for the Back The physician has recommended that you begin stretching exercises for your back. These are often used even while the back is painful. However, you should notify the physician if the activities seem to increase your pain. PELVIC TILT: Lie flat on your back with knees bent. Tighten your stomach and buttock muscles so it flattens your lower back against the floor. Hold 10 seconds. Repeat 10 times, twice daily. KNEE RAISE: Lying on the back with knees bent, raise one knee to your chest, then the other. Hold both knees against the chest 10 seconds, then lower one knee at a time. Repeat 10 times, twice daily. PARTIAL TRUNK RAISE: Lie face down, arms at your sides. Keeping your waist on the floor, use your arms raise your chest up. Support yourself on your elbows for 30 seconds. Repeat twice daily, increasing the time to two minutes as you recover. FOLLOW-UP CARE: If you have been referred to a physician for follow-up care, call the physicians office for an appointment as you were instructed or within the next two days. If you experience worsening or a significant change in your symptoms, notify the physician immediately or return to the Emergency Department at any time for re-evaluation. Prescriptions: Naproxen 500 mg PO BID #14 tablet Referrals: ALTHEA BRANDON MD [Primary Care Provider] - Follow up in 3-5 days EMILY BOX MD [ASSOCIATE] - Follow up as needed
--- NOTE | 2019-10-01 12:45 | RADIOLOGY REPORT (SQ) ---
EXAM DESCRIPTION: L SPINE WHOLE IMAGES COMPLETED DATE/TIME: 10/01/2019 12:33 pm REASON FOR STUDY: low back pain with sciatica COMPARISON: CT of the abdomen and pelvis from 11/06/2018. NUMBER OF VIEWS: Five views including obliques. TECHNIQUE: AP, lateral, oblique, and sacral radiographic images acquired of the lumbar spine. LIMITATIONS: None. FINDINGS: MINERALIZATION: Osteopenia. SEGMENTATION: There are 5 lumbar-type vertebral bodies. There is no transitional anatomy at the lumb osacral junction. ALIGNMENT: No scoliotic curvature or spondylolisthesis VERTEBRAE: Chronic wedge compression deformity of the superior endplate of the T12 vertebral body. T he lumbar vertebral body heights are preserved. There is no fracture. DISCS: The L4-L5 and L5-S1 intervertebral disc spaces are narrowed. POSTERIOR ELEMENTS: Arthropathy of the L3-L4, L4-L5 and L5-S1 facet joints. There is no pars interar ticularis defect. HARDWARE: None in the spine. PARASPINAL SOFT TISSUES: Cholecystectomy clips and atheromatous calcification of the abdominal aorta. PELVIS: Intact. OTHER: No other finding. IMPRESSION: No acute fracture or malalignment of the lumbar spine. TECHNICAL DOCUMENTATION: JOB ID: [id number] 2010 [employer]- All Rights Reserved Reading location - IP/workstation name: [email or web address]
[2019-10-01 13:02] VITALS: BP 124/49
== END 2019-10-01 13:08 | disposition home or self-care (01) ==
LOC: ER 11:55
DX: M51.36 Other intervertebral disc degeneration, lumbar region (principal); M54.42 Lumbago with sciatica, left side; E78.00 Pure hypercholesterolemia, unspecified; I10 Essential (primary) hypertension; E11.9 Type 2 diabetes mellitus without complications; Z90.49 Acquired absence of other specified parts of digestive tract; Z90.710 Acquired absence of both cervix and uterus; Z88.6 Allergy status to analgesic agent; Z88.2 Allergy status to sulfonamides; Z79.84 Long term (current) use of oral hypoglycemic drugs; Z79.82 Long term (current) use of aspirin
CPT/HCPCS: 72110; 99283

== ENCOUNTER → 2019-10-24 | Outpatient (CLI) | payer BC, MEDICARE ==
--- NOTE | 2019-10-24 13:33 | RADIOLOGY REPORT (SQ) ---
EXAM DESCRIPTION: MRI LUMBAR SPINE WITHOUT IMAGES COMPLETED DATE/TIME: 10/24/2019 10:24 am REASON FOR STUDY: M54.5 LOW BACK PAIN M54.5 LOW BACK PAIN COMPARISON: CT abdomen pelvis 11/06/2018 TECHNIQUE: Sagittal and Axial imaging includes T1, T2, STIR and gradient echo sequences. Coronal T2/ HASTE imaging. LIMITATIONS: None. FINDINGS: VISUALIZED UPPER ABDOMEN: Old left perinephric hematoma along the left mid and lower pole kidney, smaller than on CT 11/06/2018 SEGMENTATION: No transitional anatomy. The lowest well-developed disc space is labeled L5-S1. ALIGNMENT: Anatomic. VERTEBRAE: Chronic appearing central upper endplate depression at T12 BONE MARROW: Normal. No marrow replacement or reactive changes. DISC SIGNAL: Diffuse decreased T2 weighted intervertebral disc signal. Disc space loss of height at L4-5 POSTERIOR ELEMENTS: Generally intact. No pars defect evident. HARDWARE: None in the spine. CORD AND CONUS: Normal in size and signal intensity. Conus at the T12-L1 level. SOFT TISSUES: No aortic aneurysm seen. No bulky retroperitoneal adenopathy or mass. No paraspinal mas s or fluid. T11-12: At the upper edge of the field of view. Mild bilateral facet arthropathy. No significant c entral or foraminal stenosis T12-L1: Mild posterior disc bulging, mild bilateral facet and ligament hypertrophy. No central or f oraminal stenosis L1-L2: Left paracentral disc bulge, mild bilateral facet hypertrophy. No significant central or righ t foraminal narrowing. Mild inferior left foraminal narrowing without exit nerve root impingement. . L2-L3: Mild posterior disc bulging, moderate bilateral facet and ligament hypertrophy. No central st enosis. Mild bilateral inferior foraminal narrowing L3-L4: Minimal posterior disc bulging, moderate bilateral facet and ligament hypertrophy. No central stenosis. Mild bilateral inferior foraminal narrowing. L4-L5: Mild diffuse posterior disc bulging, moderate bilateral facet and ligament hypertrophy. Borde rline central canal narrowing. Mild bilateral inferior foraminal narrowing without exit nerve root i mpingement L5-S1: Mild bilateral facet hypertrophy. No central or foraminal stenosis. SACRUM: Visualized upper sacrum intact. OTHER: No other significant findings. IMPRESSION: Diffuse degenerative changes without high-grade central or foraminal stenosis. Chronic appearing minimal central upper endplate compression at T12 TECHNICAL DOCUMENTATION: JOB ID: [id number] 2010 [employer]- All Rights Reserved Reading location - IP/workstation name: [email or web address]
== END ==
LOC: RAD 09:40
PROVIDERS: ATTEND Internal Medicine
DX: M51.86 Other intervertebral disc disorders, lumbar region (principal); M48.061 Spinal stenosis, lumbar region without neurogenic claudication; M54.5 Low back pain
CPT/HCPCS: 72148